=== PATIENT | female | born 1990 | race African-American/Black ===

== ENCOUNTER 2023-10-04 09:54 | Emergency (ER) | payer OTHER ==
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
[2023-10-04 10:31] VITALS: BP 177/98; TEMP 97; O2SAT 99
== END 2023-10-04 10:26 | disposition home or self-care (01) ==
LOC: ER 09:54
DX: Z77.120 Contact with and (suspected) exposure to mold (toxic) (principal); R51.9 Headache, unspecified; R53.81 Other malaise; R53.83 Other fatigue; I10 Essential (primary) hypertension
CPT/HCPCS: 99282